=== PATIENT | female | born 1995 | race Caucasian/White ===

== ENCOUNTER 2017-09-04 21:50 | Emergency (ER) | payer MEDICAID ==
[2017-09-04] MEDS ORDERED: ONDANSETRON HCL IV 4 MG/2 ML VIAL IV ONE (23:01)
[2017-09-04] MEDS ORDERED: 0.9 % SODIUM CHLORIDE 1,000 ML BAG IV ONE (23:01)
[2017-09-04 23:10] LABS: BASO % 0.5 % (0-6); EOS % 1.8 % (0-6); GRAN % 71.6 % (47-80); HEMATOCRIT 45.5 % (35.0-47.0); HEMOGLOBIN 15.1 gm/dl (11.6-16.0); LYMPH % 15.1 % (16-45); MEAN CELL VOLUME 83.5 fl (81-97); MEAN CORPUSCULAR HEMOGLOBIN 27.7 pg (27-33); MEAN CORPUSCULAR HGB CONC 33.2 g/dl (32-36); MEAN PLATELET VOLUME 10.4 fl (7.4-10.4); PLATELET COUNT 331 K/uL (130-400); RED BLOOD COUNT 5.45 M/uL (3.80-5.40); RED CELL DISTRIBUTION WIDTH 13.9 % (11.5-14.5); WHITE BLOOD COUNT W/O DIFF 8.4 K/uL (4.2-12.2)
--- NOTE | 2017-09-04 23:39 | Emergency Department Record ---
History of Present Illness - General Chief complaint: Vomiting Stated complaint: VOMITING AND UPPER ABD PAIN Time Seen by Provider: 09/04/17 22:37 Source: Patient Mode of Arrival: Ambulatory Limitations: No limitations - History of Present Illness Initial comments: pt has had vomiting and ruq ap for 4 days. it started after she ate ice cream. she has had no bm for 4 days. she noticed that her eyes seemed yellow. MD complaint: Abdominal pain, Nausea, Vomiting Onset/Timin -: Days(s) Description of Vomiting: Bilious Associated Abdominal Pain: Yes Location: RUQ Radiation: R flank Severity: Moderate Severity scale (1-10): 6 Quality: Constant, Cramping Consistency: Intermittent Improves with: None Worsens with: None Associated Symptoms: Denies other symptoms - Related Data Home Medications Medication Instructions Recorded Confirmed Last Taken No Home Med [NO HOME MEDS] 09/04/17 09/04/17 Unknown Allergies Allergy/AdvReac Type Severity Reaction Status Date / Time No Known Allergies Allergy Unverified 02/24/17 19:05 Travel Screening - Travel/Exposure Within Last 30 Days Have you traveled within the last 30 days?: No - Travel Symptoms Symptom Screening: None Review of Systems Reviewed: No additional complaints except as noted below Constitutional: Reports: As per HPI. Denies: Chills, Fever, Malaise, Night sweats, Weakness, Weight change Eyes: Reports: As per HPI. Denies: Eye discharge, Eye pain, Photophobia, Vision change ENT: Reports: As per HPI. Denies: Congestion, Dental pain, Ear pain, Epistaxis , Hearing loss, Throat pain Respiratory: Reports: As per HPI. Denies: Cough, Dyspnea, Hemoptysis, Stridor, Wheezes Cardiovascular: Reports: As per HPI. Denies: Arrhythmia, Chest pain, Dyspnea on exertion, Edema, Murmurs, Orthopnea, Palpitations, Paroxysmal nocturnal dyspnea, Rheumatic Fever, Syncope Endocrine: Reports: As per HPI, Other. Denies: Fatigue, Heat or cold intolerance, Polydipsia, Polyuria Gastrointestinal: Reports: As per HPI, Abdominal pain, Nausea, Vomiting. Denies : Constipation, Diarrhea, Hematemesis, Hematochezia, Melena Genitourinary: Reports: As per HPI. Denies: Abnormal menses, Discharge, Dyspareunia, Dysuria, Frequency, Hematuria, Incontinence, Retention, Urgency Musculoskeletal: Reports: As per HPI. Denies: Arthralgia, Back pain, Gout, Joint swelling, Myalgia, Neck pain Skin: Reports: As per HPI, Change in color. Denies: Bruising, Change in hair/ nails, Lesions, Pruritus, Rash Neurological: Reports: As per HPI. Denies: Abnormal gait, Confusion, Headache, Numbness, Paresthesias, Seizure, Tingling, Tremors, Vertigo, Weakness Psychiatric: Reports: As per HPI. Denies: Anxiety, Auditory hallucinations, Depression, Homicidal thoughts, Suicidal thoughts, Visual hallucinations Hematological/Lymphatic: Reports: As per HPI. Denies: Anemia, Blood Clots, Easy bleeding, Easy bruising, Swollen glands Past Medical History - SOCIAL HISTORY Smoking Status: Never smoker Alcohol Use: None Drug Use: None - RESPIRATORY Hx Respiratory Disorders: No - CARDIOVASCULAR Hx Cardio Disorders: No - NEURO Hx Neuro Disorders: No - GI Hx GI Disorders: No - Hx Genitourinary Disorders: No - ENDOCRINE Hx Endocrine Disorders: No - MUSCULOSKELETAL Hx Musculoskeletal Disorders: No - PSYCH Hx Psych Problems: No - HEMATOLOGY/ONCOLOGY Hx Hematology/Oncology Disorders: No Family Medical History Any Significant Family History?: No Physical Exam - General General Appearance: Alert, Oriented x3, Cooperative, Mild distress - Head Head exam: Normal inspection - Eye Eye exam: PERRL, EOMI, Scleral icterus Pupils: Normal accommodation - ENT ENT exam: Normal exam, Mucous membranes moist, Normal external ear exam, Normal orophraynx Ear exam: Normal external inspection. negative: External canal tenderness Nasal Exam: Normal inspection. negative: Discharge, Sinus tenderness Mouth exam: Normal external inspection, Tongue normal Teeth exam: Normal inspection. negative: Dental caries Throat exam: Normal inspection. negative: Tonsillar erythema, Tonsillar exudate - Neck Neck exam: Normal inspection, Full ROM. negative: Tenderness - Respiratory Respiratory exam: Normal lung sounds bilaterally. negative: Respiratory distress - Cardiovascular Cardiovascular Exam: Normal rhythm, Normal heart sounds, Tachycardia - GI/Abdominal GI/Abdominal exam: Soft, Normal bowel sounds, Tenderness (ruq) - Rectal Rectal exam: Deferred - exam: Deferred - Extremities Extremities exam: Normal inspection, Full ROM, Normal capillary refill. negative: Tenderness - Back Back exam: Reports: Normal inspection, Full ROM. Denies: Muscle spasm, Rash noted, Tenderness - Neurological Neurological exam: Alert, CN II-XII intact, Normal gait, Oriented X3 - Psychiatric Psychiatric exam: Normal affect, Normal mood - Skin Skin exam: Dry, Intact, Normal color, Warm Course Vital Signs 09/04/17 09/04/17 22:28 22:56 Pulse Rate 110 H Respiratory 20 Rate Blood Pressure 153/103 Blood Pressure 146/98 [Left Arm] Pulse Ox 97 - Reevaluation(s) Reevaluation #1: 09/05/17 01:32 d/w dr josh wu Medical Decision Making - Lab Data Result diagrams: 09/04/17 22:52 09/04/17 22:52 Lab Results 09/04/17 Range/Units 22:52 WBC 8.4 (4.2-12.2) K/uL RBC 5.45 H (3.80-5.40) M/uL Hgb 15.1 (11.6-16.0) gm/dl Hct 45.5 (35.0-47.0) % MCV 83.5 (81-97) fl MCH 27.7 (27-33) pg MCHC 33.2 (32-36) g/dl RDW 13.9 (11.5-14.5) % Plt Count 331 (130-400) K/uL MPV 10.4 (7.4-10.4) fl Gran % 71.6 (47-80) % Lymphocytes % 15.1 L (16-45) % Monocytes % 11.0 H (0-9) % Eosinophils % 1.8 (0-6) % Basophils % 0.5 (0-6) % Disposition Disposition: Transfer Clinical Impression: Cholecystitis, Choledocholithiasis Disposition: Acute Care Hospital Transfer Transfer To: [facility] Reason For Transfer: needs surgeon Accepting Physician: dominique moreno and rbyce Time Discussed w/Accepting Physician: 01:34 Forms: Patient Portal Access Quality - Quality Measures Quality Measures: N/A - Blood Pressure Screening Does Patient Have Any of the Following: No Blood Pressure Classification: Hypertensive Reading Systolic Measurement: 153 Diastolic Measurement: 103 Screening for High Blood Pressure: < First Hypertensive BP, F/U Documented > [ G8950] First Hypertensive Follow-up Interventions: Follow-up with rescreen GT 1 day and LT 4 weeks.
[2017-09-04 23:41] LABS: BLOOD UREA NITROGEN 9 mg/dL (6-20); CREATININE 0.5 mg/dL (0.5-0.9); EST GLOMERULAR FILTRATION RATE > 60 mL/min
[2017-09-04 23:42] LABS: TOTAL PROTEIN 7.2 g/dL (6.6-8.7)
[2017-09-04 23:44] LABS: GLUCOSE,RANDOM 107 mg/dL (74-109)
[2017-09-04 23:46] LABS: ALB/GLOB RATIO 1.2 (1.1-1.8); ALBUMIN 3.9 g/dL (4.0-5.0); ALKALINE PHOSPHATASE 104 U/L (35-104); ALT/SGPT 321 U/L (<33); AST/SGOT 147 U/L (10.0-35.0); LIPASE 17 U/L (13-60)
[2017-09-05] MEDS ORDERED: AMPICILLIN SODIUM/SULBACTAM NA 3 G in 0.9 % SODIUM CHLORIDE 100ML 100 ML IVPB ONE (01:29)
--- NOTE | 2017-09-06 10:40 | CT SCAN REPORT ---
DATE: 09/05/2017 at 12:46 a.m. EXAM: EMERGENCY CT SCAN OF THE ABDOMEN AND PELVIS WITH CONTRAST. HISTORY: Right upper quadrant pain which began four days ago. Pain is intermittent and radiates into right flank. TECHNIQUE: Axial CT scan of the abdomen and pelvis performed following both oral and intravenous contrast media administration utilizing a dose of 100 mL of Omnipaque 300 as the intravenous contrast. Preliminary report provided by [facility]. COMPARISON: No prior CT with which to compare. FINDINGS: No calcified gallstones are seen within the gallbladder. However, there appears to be some mild, diffuse prominence of the gallbladder wall, probably with some edema in the gallbladder wall. This apparent gallbladder wall thickening is nonspecific and can be seen in numerous conditions including acute or chronic cholecystitis, hypoproteinemia, hepatitis, and ascites. There is also some mild intra- and extrahepatic biliary dilatation with the upper common duct measuring up to approximately 12.7 mm in diameter. No obvious common duct calculus is seen, and the common duct does gradually taper throughout the course through the pancreas with no obvious pancreatic mass evident as well. Clinical correlation as to the possibility of acute cholecystitis suggested. Correlation with serum bilirubin suggested as well, and depending on the clinical setting either a nuclear medicine hepatobiliary scan or an MRCP might be useful for further evaluation. There is diffuse fatty infiltration of the liver. In addition, there are a couple of relatively hyperdense or enhancing masses in the liver, one measuring 1.7 cm in the lateral segment of the left lobe and another measuring about 1.0 cm superiorly in the right lobe. Given the background of diffuse fatty infiltration, these may actually represent cavernous hemangiomas that rather than appearing isodense with normal renal parenchyma appear relatively hyperdense in the background of fatty infiltration of the surrounding adjacent liver. If not previously documented, this could be assessed with an MRI of the abdomen as well. No definite splenic, adrenal, pancreatic, or renal mass identified. Oral contrast given is passed throughout the small bowel well into the colon with no bowel obstruction evident. The appendix is visualized and is negative with no appendicitis evident. There is a very small amount of free fluid in the pelvis which may simply be physiologic in nature. There are probably bilateral ovarian cysts, the largest located in the left ovary measuring about 2.8 cm in size and presumably a dominant follicle. No free intraperitoneal air identified. Small periumbilical anterior abdominal wall hernia containing adipose tissue but no bowel. IMPRESSION: 1. MILD, DIFFUSELY THICK-WALLED APPEARANCE OF THE GALLBLADDER, PROBABLY WITH SOME EDEMA IN THE GALLBLADDER WALL. FINDINGS ARE NONSPECIFIC WITH NO ACTUAL CALCIFIED GALLSTONES SEEN. THERE IS SOME MILD INTRAHEPATIC BILIARY DILATATION WELL DILATATION OF THE UPPER COMMON DUCT WHICH GRADUALLY TAPERS THROUGHOUT THE PANCREAS. NO OBVIOUS COMMON DUCT CALCULUS EVIDENT. THERE IS ALSO DIFFUSE FATTY INFILTRATION OF THE LIVER WITH TWO SMALL, RELATIVELY HYPERDENSE MASSES, THE LARGEST ABOUT 1.7 CM IN SIZE IN THE LATERAL SEGMENT OF THE LEFT LOBE. THESE ARE NONSPECIFIC ALTHOUGH MAY BE CAVERNOUS HEMANGIOMAS. FURTHER EVALUATION DESCRIBED ABOVE IS SUGGESTED. 2. PROBABLE BILATERAL OVARIAN CYSTS, THE LARGEST ABOUT 2.8 CM IN THE LEFT OVARY PRESUMABLY A DOMINANT FOLLICLE. A VERY SMALL AMOUNT OF FREE FLUID IN THE PELVIS MAY SIMPLY BE PHYSIOLOGIC. 3. APPENDIX IS NEGATIVE. NO FREE AIR EVIDENT. 4. SMALL PERIUMBILICAL ANTERIOR ABDOMINAL WALL HERNIA CONTAINING ADIPOSE TISSUE BUT NO BOWEL. ADDENDUM: Report of the two liver masses was not included in the preliminary [facility] report. It was phoned by myself initially to the [facility] at the time of dictation at approximately 10: 00 a.m. on 09/05/2017 at phone number [phone] and discussed with the emergency physician in attendance at the time of my call, Dr. Aba Lees. The patient has subsequently been transferred to [facility]. I then phoned the patient's nurse at [facility], [place], at [facility] extension [phone] and provided her with the report of the two liver masses at approximately 10:05 a.m. on 09/05. JOB NUMBER: [id number] [facility]
== END 2017-09-05 01:57 | disposition short-term general hospital (02) ==
LOC: ER 21:50
DX: K80.40 Calculus of bile duct with cholecystitis, unspecified, without obstruction (principal); R11.2 Nausea with vomiting, unspecified; R10.11 Right upper quadrant pain
CPT/HCPCS: 99285 ×2; 96365; 96375; 83690; 85025; 80053; 74177; Q9967; J0295; J2405; J7030

== ENCOUNTER 2017-09-30 19:38 | Emergency (ER) | payer MEDICAID ==
[2017-09-30] MEDS ORDERED: IBUPROFEN 600 MG TABLET PO ONE (20:07)
--- NOTE | 2017-09-30 20:12 | Emergency Department Record ---
History of Present Illness - General Chief complaint: Extremity Problem Stated complaint: WRIST INJURY Time Seen by Provider: 09/30/17 20:07 Source: Patient Mode of Arrival: Ambulatory Limitations: No limitations - History of Present Illness Initial comments: 22 yo female presents to ED for evaluation following an injury when her horse kicked at her left wrist. Patient reports pain with hand/wrist extension. Patient denies other injury, denies taking anything for pain prior to arrival. Patient denies health problems other than intermittent asthma. MD Complaint: Extremity pain Onset/Timin -: Hour(s) Location: Left History of Same: No -: Yes Arthralgia Radiation: Distal Quality: Aching Consistency: Constant Improves with: Cold therapy Worsens with: Palpation Associated Symptoms: Denies other symptoms - Related Data Allergies Allergy/AdvReac Type Severity Reaction Status Date / Time No Known Allergies Allergy Unverified 02/24/17 19:05 Travel Screening - Travel/Exposure Within Last 30 Days Have you traveled within the last 30 days?: No - Travel/Exposure Within Last Year Have you traveled outside the [place] in the last year?: No - Additonal Travel Details Have you been exposed to anyone with a communicable illness?: No - Travel Symptoms Symptom Screening: None Review of Systems Constitutional: Denies: Chills, Fever, Malaise, Night sweats Eyes: Denies: Eye discharge, Eye pain ENT: Denies: Congestion, Ear pain, Epistaxis Respiratory: Denies: Cough, Dyspnea Cardiovascular: Denies: Chest pain, Dyspnea on exertion Endocrine: Denies: Fatigue, Heat or cold intolerance Gastrointestinal: Denies: Abdominal pain, Nausea, Vomiting Genitourinary: Denies: Incontinence, Retention Musculoskeletal: Reports: Arthralgia. Denies: Back pain, Gout, Joint swelling Skin: Denies: Bruising, Change in color Neurological: Denies: Abnormal gait, Confusion, Headache, Seizure Psychiatric: Denies: Anxiety Hematological/Lymphatic: Denies: Anemia, Blood Clots Past Medical History - SOCIAL HISTORY Smoking Status: Never smoker Alcohol Use: None Drug Use: None - RESPIRATORY Hx Respiratory Disorders: Yes Hx Asthma: Yes - CARDIOVASCULAR Hx Cardio Disorders: No - NEURO Hx Neuro Disorders: No - GI Hx GI Disorders: No - Hx Genitourinary Disorders: No - ENDOCRINE Hx Endocrine Disorders: No - MUSCULOSKELETAL Hx Musculoskeletal Disorders: No - PSYCH Hx Psych Problems: No - HEMATOLOGY/ONCOLOGY Hx Hematology/Oncology Disorders: No Family Medical History Any Significant Family History?: No Physical Exam - General General Appearance: Alert, Oriented x3, Cooperative, Mild distress Limitations: No limitations - Head Head exam: Atraumatic, Normocephalic, Normal inspection Head exam detail: negative: Abrasion, Contusion, Andre's sign, General tenderness, Hematoma, Laceration - Eye Eye exam: Normal appearance. negative: Conjunctival injection, Periorbital swelling, Periorbital tenderness, Scleral icterus - ENT Ear exam: negative: Auricular hematoma, Auricular trauma Nasal Exam: negative: Active bleeding, Discharge, Dried blood, Foreign body Mouth exam: negative: Drooling, Laceration, Muffled voice, Tongue elevation - Neck Neck exam: Normal inspection. negative: Meningismus, Tenderness - Respiratory Respiratory exam: Normal lung sounds bilaterally. negative: Rales, Respiratory distress, Rhonchi, Stridor - Cardiovascular Cardiovascular Exam: Regular rate, Normal rhythm, Normal heart sounds - GI/Abdominal GI/Abdominal exam: Soft. negative: Rebound, Rigid, Tenderness - Rectal Rectal exam: Deferred - exam: Deferred - Extremities Extremities exam: Tenderness (TTP along the distal ulna, mild abrasion present laterally, FROM of the wrist and fingers distally. No pain with palpation of the elbow or shoulder.). negative: Calf tenderness, Pedal edema - Back Back exam: Denies: CVA tenderness (R), CVA tenderness (L) - Neurological Neurological exam: Alert, Normal gait, Oriented X3 - Psychiatric Psychiatric exam: Normal affect, Normal mood - Skin Skin exam: Normal color. negative: Abrasion Type of lesion: negative: abrasion Course Vital Signs 09/30/17 20:02 Temperature 98.5 F Pulse Rate [ 76 Pulse Ox Probe] Respiratory 16 Rate Blood Pressure 141/78 [Right Arm] Pulse Ox 97 - Reevaluation(s) Reevaluation #1: 09/30/17 20:30 Left Wrist: Negative for fracture Patient and her mother were updated on her radiology result, appears stable for discharge with continued symptomatic care. Disposition Disposition: Discharge Clinical Impression: Contusion of wrist, left Qualifiers: Encounter type: initial encounter Qualified Code(s): S60.212A - Contusion of left wrist, initial encounter Disposition: Home, Self-Care Condition: (2) Stable Instructions: Contusion in Adults (ED) Additional Instructions: Return to ED if your symptoms worsen or if you have any concerns. Ibuprofen/Ice as directed. Follow-up with your family doctor in 3-5 days as directed. Forms: Patient Portal Access Time of Disposition: 20:31 Quality - Quality Measures Quality Measures: N/A - Blood Pressure Screening Does Patient Have Any of the Following: No Blood Pressure Classification: Hypertensive Reading Systolic Measurement: 141 Diastolic Measurement: 78 Screening for High Blood Pressure: < First Hypertensive BP, F/U Documented > [ G8950] First Hypertensive Follow-up Interventions: Referral to alternative/primary care provider.
--- NOTE | 2017-10-02 10:55 | RADIOLOGY REPORT ---
EXAM: LEFT WRIST HISTORY: INJURY. TECHNIQUE: Four views of the left wrist were performed. FINDINGS: No evidence of fracture or dislocation. No lytic or blastic lesion. IMPRESSION: NEGATIVE LEFT WRIST EXAMINATION. JOB NUMBER: [id number] MTDD
== END 2017-09-30 20:54 | disposition home or self-care (01) ==
LOC: ER 19:38
DX: S60.212A Contusion of left wrist, initial encounter (principal); W55.12XA Struck by horse, initial encounter
CPT/HCPCS: 99283

== ENCOUNTER 2018-12-09 20:54 | Emergency (ER) | payer MEDICAID ==
[2018-12-09] MEDS ORDERED: PREDNISONE 20 MG TAB PO ONE (21:22)
[2018-12-09] MEDS ORDERED: HYDROXYZINE PAMOATE 25 MG CAPSULE PO ONE (21:22)
--- NOTE | 2018-12-09 21:24 | Emergency Department Record ---
History of Present Illness - General Chief complaint: Rash Stated complaint: RASH/POISIN SHUMAK Time Seen by Provider: 12/09/18 20:57 Source: Patient Mode of Arrival: Ambulatory Limitations: No limitations - History of Present Illness Initial comments: 23 yo female presents to ED for evaluation of diffuse lesions that began on the right elbow region, spread diffusely over the past 1 week. Patient reports itching for the past 1 week, denies fevers, chills, nausea, vomiting, or other associated symptoms. Patient denies health problems at her baseline. Patient has taken Benadryl several days ago for her itching with some improvement. MD complaint: Rash Onset/Timin -: Week(s) Location: Face, Chest, RUE Severity: Mild Severity scale (1-10): 5 Quality: Other Consistency: Constant, Getting worse Improves with: None Worsens with: None Context: Other Associated symptoms: Itching, Other Treatments Prior to Arrival: OTC topical medication - Related Data Previous Rx's Medication Instructions Recorded Hydroxyzine Pamoate [Vistaril] 25 mg PO Q6H PRN #30 capsule 12/09/18 Prednisone [Prednisone 20Mg] 20 mg PO BID #12 tab 12/09/18 Allergies Allergy/AdvReac Type Severity Reaction Status Date / Time No Known Allergies Allergy Unverified 02/24/17 19:05 Travel Screening - Travel/Exposure Within Last 30 Days Have you traveled within the last 30 days?: No - Travel Symptoms Symptom Screening: Rash Review of Systems Constitutional: Denies: Chills, Fever, Malaise, Night sweats Eyes: Denies: Eye discharge, Eye pain ENT: Denies: Congestion, Ear pain, Epistaxis Respiratory: Denies: Cough, Dyspnea Cardiovascular: Denies: Chest pain, Dyspnea on exertion Endocrine: Denies: Fatigue, Heat or cold intolerance Gastrointestinal: Denies: Abdominal pain, Nausea, Vomiting Genitourinary: Denies: Incontinence, Retention Musculoskeletal: Denies: Arthralgia, Back pain Skin: Reports: Rash. Denies: Bruising, Change in color Neurological: Denies: Abnormal gait, Confusion, Headache, Seizure Psychiatric: Denies: Anxiety Hematological/Lymphatic: Denies: Anemia, Blood Clots Past Medical History - SOCIAL HISTORY Smoking Status: Never smoker Alcohol Use: None Drug Use: None - RESPIRATORY Hx Respiratory Disorders: Yes Hx Asthma: Yes - CARDIOVASCULAR Hx Cardio Disorders: No - NEURO Hx Neuro Disorders: No - GI Hx GI Disorders: No - Hx Genitourinary Disorders: No - ENDOCRINE Hx Endocrine Disorders: No - MUSCULOSKELETAL Hx Musculoskeletal Disorders: No - PSYCH Hx Psych Problems: Yes Hx Anxiety: Yes Hx Depression: Yes Comment:: hx of self harm - HEMATOLOGY/ONCOLOGY Hx Hematology/Oncology Disorders: No Family Medical History Any Significant Family History?: No Family Hx Comment (NOT TO BE USED IN PLACE OF ITEMS BELOW): denies Physical Exam - General General Appearance: Alert, Oriented x3, Cooperative, No acute distress Limitations: No limitations - Head Head exam: Atraumatic, Normocephalic, Normal inspection Head exam detail: negative: Abrasion, Contusion, Andre's sign, General tenderness, Hematoma, Laceration - Eye Eye exam: Normal appearance. negative: Conjunctival injection, Periorbital swelling, Periorbital tenderness, Scleral icterus - ENT Ear exam: negative: Auricular hematoma, Auricular trauma Nasal Exam: negative: Active bleeding, Discharge, Dried blood, Foreign body Mouth exam: negative: Drooling, Laceration, Muffled voice, Tongue elevation - Neck Neck exam: Normal inspection. negative: Meningismus, Tenderness - Respiratory Respiratory exam: Normal lung sounds bilaterally. negative: Rales, Respiratory distress, Rhonchi, Stridor - Cardiovascular Cardiovascular Exam: Regular rate, Normal rhythm, Normal heart sounds - GI/Abdominal GI/Abdominal exam: Soft. negative: Rebound, Rigid, Tenderness - Rectal Rectal exam: Deferred - exam: Deferred - Extremities Extremities exam: Other (Excoriation to the right elbow, numerous lesions extending from the upper extremities to the chest and face.). negative: Calf tenderness, Pedal edema, Tenderness - Back Back exam: Denies: CVA tenderness (R), CVA tenderness (L) - Neurological Neurological exam: Alert, Normal gait, Oriented X3 - Psychiatric Psychiatric exam: Normal affect, Normal mood - Skin Skin exam: Normal color. negative: Abrasion Type of lesion: negative: abrasion Course Vital Signs 12/09/18 21:05 Temperature 99.3 F Pulse Rate 82 Respiratory 18 Rate Blood Pressure 144/101 Pulse Ox 98 - Reevaluation(s) Reevaluation #1: 12/09/18 21:28 Patient was seen and examined Symptoms do not appear c/w contact dermatitis, no evidence for cellulitis, fungal infection, or abscess on examination. Will treat with Vistaril and Prednisone as directed for possible atypical contact dermatitis vs. viral exanthem. Patient and her mother are in agreement with the plan of care as discussed, appears stable for discharge at this time. Disposition Disposition: Discharge Clinical Impression: Diffuse dermatitis Disposition: Home, Self-Care Condition: (2) Stable Instructions: Dermatitis (ED) Additional Instructions: Return to ED if your symptoms worsen or if you have any concerns. Prednisone and Vistaril as directed. Follow-up with your family doctor in 3-5 days as directed. Prescriptions: Prednisone [Prednisone 20Mg] 20 mg PO BID #12 tab Hydroxyzine Pamoate [Vistaril] 25 mg PO Q6H PRN #30 capsule PRN Reason: Itching Forms: Patient Portal Access Time of Disposition: 21:21 Quality - Quality Measures Quality Measures: N/A - Blood Pressure Screening Does Patient Have Any of the Following: No Blood Pressure Classification: Hypertensive Reading Systolic Measurement: 144 Diastolic Measurement: 101 Screening for High Blood Pressure: < First Hypertensive BP, F/U Documented > [G8950] First Hypertensive Follow-up Interventions: Referral to alternative/primary care provider.
[2018-12-10] MEDS ORDERED: PREDNISONE 20 MG TAB PO SCH (08:00)
== END 2018-12-09 21:42 | disposition home or self-care (01) ==
LOC: ER 20:54
DX: L30.8 Other specified dermatitis (principal)
CPT/HCPCS: 99283; J7512

== ENCOUNTER 2018-12-28 14:05 | Emergency (ER) | payer MEDICAID ==
[2018-12-28] MEDS ORDERED: METHYLPREDNISOLONE PF 125MG/VIAL IVP ONE (14:38)
[2018-12-28] MEDS ORDERED: DIPHENHYDRAMINE HCL 50 MG/ML VIAL IVP ONE (14:38)
--- NOTE | 2018-12-28 14:51 | Emergency Department Record ---
History of Present Illness - General Chief complaint: Allergic Reaction Stated complaint: SWELLING LIPS/ITCHY ALL OVER Time Seen by Provider: 12/28/18 14:19 Source: Patient Mode of Arrival: Ambulatory Limitations: No limitations - History of Present Illness Initial Comments: The patient is here due to waking up this AM with her lips swollen and itching a ll over her body. She was in the ER a couple of weeks ago due to possible poison debora and was started on steroids. Since her body rash has improved. She also had some sharp CP 2 days ago which came and went that she felt was most likely anxiety. The patient did use her inhaller for that issue and did improve. Since her body rash has improved but has not resolved. She denies any SOB, AGATA, or voice changes at this time. MD Complaint: Allergic reaction, Facial swelling Onset/Timin -: Hour(s) Exposure: Unknown Symptoms: Itching, Lip swelling Severity: Mild Treatment Prior to Arrival: None Previous Allergy History: None - Related Data Previous Rx's Medication Instructions Recorded Prednisone [Prednisone 20Mg] 40 mg PO DAILY #8 tab 12/28/18 Allergies Allergy/AdvReac Type Severity Reaction Status Date / Time No Known Allergies Allergy Unverified 02/24/17 19:05 Travel Screening - Travel/Exposure Within Last 30 Days Have you traveled within the last 30 days?: No Review of Systems Constitutional: Denies: Chills, Fever Eyes: Denies: Eye discharge ENT: Denies: Congestion Respiratory: Denies: Cough, Dyspnea, Hemoptysis Cardiovascular: Denies: Arrhythmia, Chest pain Past Medical History - SOCIAL HISTORY Smoking Status: Never smoker Alcohol Use: None Drug Use: None - RESPIRATORY Hx Respiratory Disorders: Yes Hx Asthma: Yes - CARDIOVASCULAR Hx Cardio Disorders: No - NEURO Hx Neuro Disorders: No - GI Hx GI Disorders: No - Hx Genitourinary Disorders: No - ENDOCRINE Hx Endocrine Disorders: No - MUSCULOSKELETAL Hx Musculoskeletal Disorders: No - PSYCH Hx Psych Problems: Yes Hx Anxiety: Yes Hx Depression: Yes Comment:: hx of self harm - HEMATOLOGY/ONCOLOGY Hx Hematology/Oncology Disorders: No Family Medical History Any Significant Family History?: No Family Hx Comment (NOT TO BE USED IN PLACE OF ITEMS BELOW): denies Physical Exam - General General Appearance: Alert, Oriented x3, Cooperative, No acute distress - Head Head exam: Atraumatic, Normocephalic - Eye Eye exam: Normal appearance, PERRL. negative: Conjunctival injection - ENT Mouth exam: Tongue normal. negative: Normal external inspection (There is mild upper> lower lip swelling.), Tongue elevation Throat exam: Normal inspection. negative: Tonsillar erythema, Tonsillomegaly, Tonsillar exudate, R peritonsillar mass, L peritonsillar mass - Neck Neck exam: Normal inspection, Full ROM. negative: Lymphadenopathy, Meningismus, Tenderness - Respiratory Respiratory exam: Normal lung sounds bilaterally. negative: Respiratory distress - Cardiovascular Cardiovascular Exam: Regular rate, Normal rhythm, Normal heart sounds - GI/Abdominal GI/Abdominal exam: Soft, Normal bowel sounds. negative: Tenderness - Extremities Extremities exam: Normal inspection, Full ROM, Normal capillary refill. negative: Tenderness - Neurological Neurological exam: Alert. negative: Motor sensory deficit - Skin Skin exam: Rash (The patient has a faint nontender macular paplar erythematous rash to the extremities.) Course Vital Signs 12/28/18 14:29 Temperature 98.3 F Pulse Rate 74 Respiratory 20 Rate Blood Pressure 154/87 Pulse Ox 98 - Reevaluation(s) Reevaluation #1: The patient is doing better at this time. Her lip swelling is about 50% improved and she denies any voice changes or difficulty swallowing. On exam her lungs are clear and her itching also is improved. 12/28/18 16:24 Reevaluation #2: The patient is doing a lot better at this time and her itching is gone. Her lip swelling continues to improve and she is resting comfortably with no voice changes or trouble breathing. I did discuss the need to continue the antihistamines and Prednisone and she is to see her PCP later this week for recheck. 12/28/18 17:02 Medical Decision Making - Data Complexity MDM Data: Labs Ordered and/or Reviewed, X-Ray Ordered and/or Reviewed, EKG Ordered and/or Reviewed - Lab Data Result diagrams: 12/28/18 14:55 12/28/18 14:55 - EKG Data -: EKG Interpreted by Me EKG: No Acute Changes, Normal EKG - Radiology Data Radiology results: Report reviewed (CXR: Neg.) Disposition Disposition: Discharge Clinical Impression: Allergic reaction Qualifiers: Encounter type: initial encounter Qualified Code(s): T78.40XA - Allergy, unspecified, initial encounter Disposition: Home, Self-Care Condition: (2) Stable Instructions: General Allergic Reaction (ED) Additional Instructions: Please continue the antihistamines at home for 5 days and continue the Pred nisone tomorrow. Please see your doctor for recheck later this week and also be referred to an master steam yacht for testing. Return to the ER for any worsening symptoms, trouble breathing, voice changes or pain. Prescriptions: Prednisone [Prednisone 20Mg] 40 mg PO DAILY #8 tab Forms: Patient Portal Access Time of Disposition: 17:02 Quality - Quality Measures Quality Measures: N/A - Blood Pressure Screening View Details: Yes Does Patient Have Any of the Following: No Blood Pressure Classification: Pre-Hypertensive BP Reading Systolic Measurement: 154 Diastolic Measurement: 87 Screening for High Blood Pressure: < Pre-Hypertensive BP, F/U Documented > [G8950] Pre-Hypertensive Follow-up Interventions: Referral to alternative/primary care provider.
[2018-12-28 15:09] LABS: BASO % 0.3 % (0-6); EOS % 3.4 % (0-6); GRAN % 65.6 % (47-80); HEMATOCRIT 44.8 % (35.0-47.0); HEMOGLOBIN 14.3 gm/dl (11.6-16.0); LYMPH % 24.8 % (16-45); MEAN CELL VOLUME 83.6 fl (81-97); MEAN CORPUSCULAR HEMOGLOBIN 26.7 pg (27-33); MEAN CORPUSCULAR HGB CONC 31.9 g/dl (32-36); MONO % 5.9 % (0-9); PLATELET COUNT 358 K/uL (130-400); RED BLOOD COUNT 5.36 M/uL (3.80-5.40); RED CELL DISTRIBUTION WIDTH 14.3 % (11.5-14.5); WHITE BLOOD COUNT W/O DIFF 6.6 K/uL (4.2-12.2)
[2018-12-28 15:20] LABS: BLOOD UREA NITROGEN 5 mg/dL (6-20); CREATININE 0.7 mg/dL (0.5-0.9); EST GLOMERULAR FILTRATION RATE > 60 mL/min; TOTAL PROTEIN 7.6 g/dL (6.6-8.7)
[2018-12-28 15:22] LABS: GLUCOSE,RANDOM 96 mg/dL (74-109)
[2018-12-28 15:25] LABS: ALB/GLOB RATIO 1.5 (1.1-1.8); ALBUMIN 4.6 g/dL (4.0-5.0); ALKALINE PHOSPHATASE 64 U/L (35-104); ALT/SGPT 24 U/L (<33); AST/SGOT 15 U/L (10.0-35.0)
--- NOTE | 2018-12-30 08:15 | RADIOLOGY REPORT ---
EXAM: CHEST, TWO VIEWS HISTORY: PATIENT HAS PRURITUS. TECHNIQUE: Two views of the chest are provided without comparison examinations. FINDINGS: The cardiomediastinal silhouette is within normal limits for size and contour. The omega appear unremarkable. There is no radiographic evidence of a focal infiltrate or pleural effusion. No pneumothorax is noted. IMPRESSION: NO RADIOGRAPHIC EVIDENCE OF AN ACUTE INTRATHORACIC PROCESS. JOB NUMBER: [id number] MTDD
== END 2018-12-28 17:26 | disposition home or self-care (01) ==
LOC: ER 14:05
DX: R22.0 Localized swelling, mass and lump, head (principal); T78.40XA Allergy, unspecified, initial encounter; R07.9 Chest pain, unspecified; L29.9 Pruritus, unspecified
CPT/HCPCS: 71046; 80053; 84484; 84703; 85025; 93005; 93010; 96374; 96375; 99284; J1200; J2930